=== PATIENT | male | born 1955 | race Caucasian/White ===

== ENCOUNTER → 2019-05-27 | Outpatient (CLI) | payer OTHER ==
--- NOTE | 2019-05-27 09:23 | RADIOLOGY REPORT (SQ) ---
EXAM DESCRIPTION: U/S ABDOMEN LIMITED W/O DOP COMPLETED DATE/TIME: 05/27/2019 9:10 am REASON FOR STUDY: ABDOMINAL PAIN R10.13 EPIGASTRIC PAIN COMPARISON: 11/06/2011 TECHNIQUE: Dynamic and static grayscale images acquired of the abdomen and recorded on PACS. Additio nal selected color Doppler and spectral images recorded. LIMITATIONS: The examination is limited due to bowel gas. FINDINGS: PANCREAS: The pancreas is suboptimally visualized due to overlying bowel gas. LIVER: The liver measures 16.5 cm in length, within the upper limits of normal size. No masses. Echo texture normal. LIVER VASCULATURE: Normal directional flow of the main portal vein and hepatic veins. GALLBLADDER: No stones. The gallbladder wall measures 2.4 mm, normal wall thickness. No pericholecys tic fluid. ULTRASOUND-DETECTED MURILLO'S SIGN: Negative. INTRAHEPATIC DUCTS AND COMMON DUCT: CBD measures 4.0 mm in diameter, normal. The intrahepatic ducts normal caliber. No filling defects. INFERIOR VENA CAVA: Normal flow. AORTA: No aneurysm. RIGHT KIDNEY: The right kidney measures 9.8 cm in length, normal size. Normal echogenicity. A 1.3 x 1.6 x 1.6 cm complex cyst, mid pole of the kidney. This finding probably correlates to the CT abdo men and pelvis examination dated 12/30/2011. No hydronephrosis. No calcifications. PERITONEAL AND RIGHT PLEURAL SPACE: No ascites or effusions. OTHER: No other significant findings. IMPRESSION: 1. The examination is limited due to bowel gas. The pancreas is not well visualized. 2. A complex right renal cyst, probably correlates to the CT abdomen pelvis examination dated 012, probably benign finding. A follow-up renal ultrasound examination in three months suggested to document for stability. TECHNICAL DOCUMENTATION: JOB ID: [id number] [employer]- All Rights Reserved Reading location - IP/workstation name: [email or web address]
== END ==
LOC: RAD 09:15
PROVIDERS: ATTEND Internal Medicine Gastroenterology
DX: R10.13 Epigastric pain (principal)
CPT/HCPCS: 76705